=== PATIENT | female | born 1965 | race Two or more races ===

== ENCOUNTER 2017-06-13 05:45 | Emergency (ER) | payer MEDICAID ==
[~2017-06-13] VITALS: Ht 144.8 cm; Wt 59.0 kg
[2017-06-13 05:52] VITALS: Ht 144.8 cm; Wt 59.0 kg
[2017-06-13 07:15] VITALS: BP 161/84
== END 2017-06-13 07:15 | disposition home or self-care (01) ==
LOC: ED 05:45
DX: L03.113 Cellulitis of right upper limb (principal)
CPT/HCPCS: A4570; Q0092